=== PATIENT | female | born 1990 | race Hispanic/Latino ===

== ENCOUNTER 2022-01-26 12:25 | Outpatient (CLI) | payer OTHER | END 2022-01-26 12:26 | disposition home or self-care (01) | LOC: CSHULT 12:25 | PROVIDERS: ATTEND Family Medicine | DX: Z34.83 Encounter for supervision of other normal pregnancy, third trimester (principal); Z3A.30 30 weeks gestation of pregnancy | CPT/HCPCS: 76805 ==

== ENCOUNTER 2022-03-01 15:01 | Inpatient (IN) | payer MEDICAID, OTHER, SELFPAY ==
[2022-03-01 16:03] VITALS: BMI 31.8
[2022-03-01] MEDS: Betamet Acet/Betamet Na Ph 30 MG/5 ML VIAL ONE (18:29)
[2022-03-01] MEDS ORDERED: Ondansetron PF 4 MG/2 ML Vial IVP PRN (18:35)
[2022-03-01] MEDS ORDERED: Methylergonovine 0.2 MG/ML VIAL IM PRN (18:35)
[2022-03-01] MEDS ORDERED: Butorphanol Tartrate 1 MG/ML VIAL SLOW IVP PRN (18:35)
[2022-03-01] MEDS ORDERED: Promethazine HCl 25 MG/ML VIAL IM PRN (18:35)
[2022-03-01] MEDS ORDERED: Carboprost 250 MCG/ML AMP IM PRN (18:35)
[2022-03-01] MEDS ORDERED: Diphenoxylate HCl/Atropine Tablet PO PRN ×2 (18:35)
[2022-03-01] MEDS ORDERED: Ibuprofen 800 MG TAB PO PRN (18:35)
[2022-03-01] MEDS ORDERED: hydrALAZINE 20 MG/ML VIAL SLOW IVP PRN (18:35)
[2022-03-01] MEDS ORDERED: HYDROcodone/Acetaminophen 5/325 mg Tablet PO PRN ×2 (18:35)
[2022-03-01] MEDS ORDERED: Misoprostol 200 MCG TAB PR PRN (18:35)
[2022-03-01] MEDS ORDERED: Lidocaine 1% (PF) 30 ML VIAL SC PRN (18:35)
[2022-03-01] MEDS ORDERED: Acetaminophen 500 MG TAB PO PRN (18:35)
[2022-03-01] MEDS ORDERED: Penicillin G Potassium 5 MILL.UNITS in Sodium Chloride 0.9% 100 ML IVPB SCH (18:45)
[2022-03-01] MEDS ORDERED: NS w/ Oxytocin 30 units 500 ML IV SCH (18:45)
[2022-03-01] MEDS: Lactated Ringer's 1,000 ML IV SCH (19:53)
[2022-03-01 20:22] LABS: Hemoglobin 11.6 g/dL (12.0-15.5); Mean Corpuscular HGB CONC 33.4 g/dL (32.0-36.0); Mean Corpuscular Hemoglobin 27.2 pg (27.0-33.0); Mean Corpuscular Volume 81.3 fl (81.6-98.3); Mean Platelet Volume 10.9 fl (7.4-10.4); Platelet Count 265 10x3/uL (150-450); RBC Distribution Width 14.4 % (11.5-14.5); Red Blood Cell (RBC) Count 4.27 10x6/uL (3.90-5.03); White Blood Cell (WBC) Count 5.6 10x3/uL (3.5-10.5)
[2022-03-01 20:41] LABS: SARS-CoV-2 NAA Rapid Test Not Detected (NotDetected)
[2022-03-01 22:34] LABS: Syphilis Antibody Nonreactive (Nonreactive); Syphilis Antibody Index 0.02 S/CO (<1.00 Non-Reactive)
[2022-03-01 22:35] LABS: HBSAg Index 0.23 S/CO (0-0.99); Hep B Surf Ag Non-Reactive S/CO (NonReactive)
[2022-03-02] MEDS: Lactated Ringer's 1,000 ML IV SCH ×3 (03:10→18:12)
[2022-03-02] MEDS ORDERED: Penicillin G Potassium 5 MILL.UNITS VIAL ONE (06:55)
[2022-03-02] MEDS: Penicillin G 2.5 MILL.units 2.5 MILL.UNITS in Premix Bag 1 BAG IVPB SCH ×5 (10:55→23:36)
[2022-03-02] MEDS: Betamet Acet/Betamet Na Ph 30 MG/5 ML VIAL ONE (18:11)
== END 2022-03-03 07:46 | disposition home or self-care (01) | DRG 833 ==
LOC: CSHLD/OP 15:01 → CSHLD 18:38
PROVIDERS: ADMIT Family Medicine; ATTEND Family Medicine
DX: O47.03 False labor before 37 completed weeks of gestation, third trimester (principal); Z3A.35 35 weeks gestation of pregnancy; Z20.822 Contact with and (suspected) exposure to COVID-19; Z79.899 Other long term (current) drug therapy
CPT/HCPCS: 85027; 86780; 86850; 86900; 86901; 87340; 99285; J0702; J2540; J7120; U0002

== ENCOUNTER 2022-03-22 07:49 | Day surgery (SDC) | payer MEDICAID, OTHER ==
[2022-03-22] MEDS ORDERED: hydrALAZINE 20 MG/ML VIAL SLOW IVP PRN (08:45)
== END 2022-03-22 09:00 | disposition home health service (06) ==
LOC: CSHLD/OP 07:49
PROVIDERS: ATTEND Family Medicine
DX: O47.1 False labor at or after 37 completed weeks of gestation (principal); Z3A.38 38 weeks gestation of pregnancy

== ENCOUNTER 2022-03-28 19:30 | Inpatient (IN) | payer MEDICAID, OTHER, SELFPAY ==
[2022-03-29 04:09] VITALS: BMI 31.5
[2022-03-29 05:13] LABS: Hemoglobin 10.7 g/dL (12.0-15.5); Mean Corpuscular HGB CONC 31.9 g/dL (32.0-36.0); Mean Corpuscular Hemoglobin 26.9 pg (27.0-33.0); Mean Corpuscular Volume 84.2 fl (81.6-98.3); Mean Platelet Volume 11.2 fl (7.4-10.4); Platelet Count 197 10x3/uL (150-450); RBC Distribution Width 14.7 % (11.5-14.5); Red Blood Cell (RBC) Count 3.98 10x6/uL (3.90-5.03); White Blood Cell (WBC) Count 5.8 10x3/uL (3.5-10.5)
[2022-03-29] MEDS ORDERED: Acetaminophen 500 MG TAB PO PRN (05:45)
[2022-03-29] MEDS ORDERED: Zolpidem Tartrate 5 MG TAB PO PRN (05:45)
[2022-03-29] MEDS ORDERED: Promethazine HCl 25 MG/ML VIAL IM PRN ×2 (05:45→19:14)
[2022-03-29] MEDS ORDERED: Lactated Ringer's 1,000 ML IV SCH (05:45)
[2022-03-29] MEDS ORDERED: Butorphanol Tartrate 1 MG/ML VIAL SLOW IVP PRN (05:45)
[2022-03-29] MEDS ORDERED: Ondansetron PF 4 MG/2 ML Vial IVP PRN ×2 (05:45→19:14)
[2022-03-29] MEDS ORDERED: hydrALAZINE 20 MG/ML VIAL SLOW IVP PRN ×2 (05:45→19:14)
[2022-03-29 05:48] LABS: Syphilis Antibody Nonreactive (Nonreactive); Syphilis Antibody Index 0.02 S/CO (<1.00 Non-Reactive)
[2022-03-29 05:49] LABS: HBSAg Index 0.15 S/CO (0-0.99); Hep B Surf Ag Non-Reactive S/CO (NonReactive)
[2022-03-29] MEDS ORDERED: Misoprostol 100 MCG TAB ONE (05:51)
[2022-03-29 10:39] LABS: SARS-CoV-2 NAA Rapid Test Not Detected (NotDetected)
[2022-03-29] MEDS ORDERED: NS w/ Oxytocin 30 units 500 ML ONE (11:28)
[2022-03-29] MEDS ORDERED: Ibuprofen 800 MG TAB PO PRN (16:23)
[2022-03-29] MEDS ORDERED: Preparation H Ointment 28 GM TUBE PR PRN (19:14)
[2022-03-29] MEDS ORDERED: diphenhydrAMINE 25 MG CAP PO PRN (19:14)
[2022-03-29] MEDS ORDERED: Milk Of Magnesia 30 ML UDCUP PO PRN (19:14)
[2022-03-29] MEDS ORDERED: Lanolin Ointment 7 GM TUBE TOP PRN (19:14)
[2022-03-29] MEDS ORDERED: Bisacodyl 10 MG SUPP PR PRN (19:14)
[2022-03-29] MEDS ORDERED: HYDROcodone/Acetaminophen 5/325 mg Tablet PO PRN (19:14)
[2022-03-29] MEDS ORDERED: Boostrix 0.5 ML (Tdap) VIAL (>/=7 yrs of age) IM ONE (19:14)
[2022-03-29] MEDS ORDERED: Ferrous Sulfate 325 MG TAB PO SCH (21:00)
[2022-03-30] MEDS: Ibuprofen 800 MG TAB PO SCH ×2 (00:30→10:30)
[2022-03-30] MEDS: Docusate 100 MG CAP PO SCH ×2 (00:31→10:30)
[2022-03-30] MEDS ORDERED: Ferrous Sulfate 325 MG TAB PO SCH (08:00)
[2022-03-30] MEDS ORDERED: Prenatal Vitamin 1 TAB PO SCH (09:00)
[2022-03-30 11:56] VITALS: BP 106/61; TEMP 98.4
== END 2022-03-30 17:45 | disposition home or self-care (01) | DRG 807 ==
LOC: CSHLD 03-29 03:34 → CSHPP 03-29 18:18
PROVIDERS: ADMIT Family Medicine; ATTEND Family Medicine
PROC: 10E0XZZ Delivery of Products of Conception, External Approach (ICD-10-PCS; principal; 2022-03-29)
PROC: 10907ZC Drainage of Amniotic Fluid, Therapeutic from Products of Conception, Via Natural or Artificial Opening (ICD-10-PCS; 2022-03-29)
PROC: 3E0P7VZ Introduction of Hormone into Female Reproductive, Via Natural or Artificial Opening (ICD-10-PCS; 2022-03-29)
DX: O80 Encounter for full-term uncomplicated delivery (principal); Z37.0 Single live birth; Z3A.39 39 weeks gestation of pregnancy; Z20.822 Contact with and (suspected) exposure to COVID-19
CPT/HCPCS: 85027; 86780; 86850; 86900; 86901; 87340; J2590; U0002